=== PATIENT | male | born 2000 | race Caucasian/White ===

== ENCOUNTER 2023-01-30 12:31 | Outpatient (CLI) | payer OTHER | END 2023-01-30 23:59 | disposition critical access hospital (66) | LOC: EMS 12:31 | DX: T48.4X2A Poisoning by expectorants, intentional self-harm, initial encounter (principal); T45.0X2A Poisoning by antiallergic and antiemetic drugs, intentional self-harm, initial encounter; R11.10 Vomiting, unspecified; R00.0 Tachycardia, unspecified; F10.90 Alcohol use, unspecified, uncomplicated | CPT/HCPCS: A0425; A0427 ==

== ENCOUNTER 2023-01-30 12:48 | Emergency (ER) | payer OTHER ==
[2023-01-30 13:02] LABS: BASOPHILS # (AUTO) 0.1 10^3/uL (0.0-0.1); BASOPHILS % (AUTO) 0.7 %; EOSINOPHILS % (AUTO) 0.2 %; HCT - HEMATOCRIT 45.9 % (42.0-52.0); HGB - HEMOGLOBIN 15.5 g/dL (14.0-18.0); LYMPHOCYTES # (AUTO) 1.3 10^3/uL (1.5-3.5); LYMPHOCYTES % (AUTO) 12.5 %; MEAN CORPUSCULAR HEMOGLOBIN 29.6 pg (27.0-31.0); MEAN CORPUSCULAR HGB CONC 33.8 g/dL (32.0-36.0); MEAN CORPUSCULAR VOLUME 87.6 fL (80.0-94.0); MEAN PLATELET VOLUME 9.9 fL (7.4-11.4); MONOCYTES # (AUTO) 0.9 10^3/uL (0.0-1.0); MONOCYTES % (AUTO) 8.5 %; NEUTROPHILS # (AUTO) 7.9 10^3/uL (1.5-6.6); NEUTROPHILS % (AUTO) 77.8 %; PLT - PLATELET COUNT 306 10^3/uL (130-450); RED BLOOD COUNT 5.24 10^6/uL (4.70-6.10); RED CELL DISTRIBUTION WIDTH 12.6 % (12.0-15.0); WHITE BLOOD COUNT 10.1 x10^3/uL (4.8-10.8)
[2023-01-30 13:17] LABS: ALBUMIN/GLOBULIN RATIO 1.7 (1.0-2.2); ALKALINE PHOSPHATASE 54 IU/L (42-121); ALT ALANINE AMINOTRANSFERASE 10 IU/L (10-60); AST ASPARTATE AMINOTRANSFERASE 14 IU/L (10-42); BILIRUBIN,TOTAL 0.8 mg/dL (0.2-1.0); BUN - BLOOD UREA NITROGEN 11 mg/dL (6-20); CALCIUM 9.7 mg/dL (8.5-10.3); CARBON DIOXIDE - CO2 24 mmol/L (21-32); CHLORIDE 107 mmol/L (101-111); CK- CREATINE KINASE 127 IU/L (30-223); CREATININE 0.8 mg/dL (0.6-1.3); ETOH - ETHANOL 84.3 mg/dL; GFR - MDRD 119 (>89); GLUCOSE 102 mg/dL (74-104); LIPASE 25 U/L (11-82); POTASSIUM 3.4 mmol/L (3.5-4.5); SODIUM 140 mmol/L (135-145); TOTAL PROTEIN 7.9 g/dL (6.4-8.9)
[2023-01-30 13:19] LABS: ACETAMINOPHEN < 0.1 ug/mL; SALICYLATE < 1.5 mg/dL
[2023-01-30] MEDS ORDERED: LORazepam 2 MG/ML VIAL IVP STA (13:19)
[2023-01-30] MEDS ORDERED: SODIUM CHLORIDE 0.9% 1,000 ML IV STA ×2 (13:23)
--- NOTE | 2023-01-30 13:24 | ED Physician Documentation ---
History of Present Illness - Stated complaint Stated Complaint: SI - Chief complaint Chief Complaint: General - History obtained from History obtained from: Patient - History of Present Illness Timing: Today Pain level max: 0 Pain level now: 0 - Additonal information Additional information: Patient is a 22-year-old male who presents to the emergency department stating that he has been feeling suicidal recently. He states that he tried to overdose today on dextromethorphan and Claritin. He states he also drank vodka. He reportedly called 911 after taking the medications. He states that he feels hopeless. He denies ever being hospitalized for depression or suicidal ideation in the past. Denies any prior suicide attempts. Denies being on any regular medications at home. Nothing makes it better or worse. He did have emesis after ingesting the medications. Review of Systems Constitutional: denies: Fever, Chills GI: denies: Vomiting, Diarrhea : denies: Dysuria Skin: denies: Rash Musculoskeletal: denies: Neck pain, Back pain Neurologic: denies: Headache PD PAST MEDICAL HISTORY - Past Medical History Past Medical History: No - Allergies Allergies/Adverse Reactions: Allergies Allergy/AdvReac Type Severity Reaction Status Date / Time latex Allergy Rash Verified 01/30/23 13:23 - Social History Does the pt drink ETOH?: Yes ETOH Use: Liquor - Family History Family history: reports: Non contributory PD ED PE NORMAL - Vitals Vital signs reviewed: Yes - General General: Alert and oriented X 3, No acute distress, Well developed/nourished - HEENT HEENT: Moist mucous membranes - Neck Neck: Supple, no meningeal sign - Cardiac Cardiac: Strong equal pulses, Other (Tachycardic) - Respiratory Respiratory: No respiratory distress, Clear bilaterally - Abdomen Abdomen: Soft, Non tender, Non distended - Derm Derm: Warm and dry, No rash - Extremities Extremities: No edema, No calf tenderness / cord - Neuro Neuro: Alert and oriented X 3 Results - Vitals Vitals: Vital Signs - 24 hr 01/30/23 01/30/23 01/30/23 12:53 15:20 17:15 Temperature 36.8 C Heart Rate 155 H 129 H 110 H Respiratory 15 16 16 Rate Blood Pressure 148/76 H 104/69 116/52 L O2 Saturation 100 100 99 Oxygen O2 Source Room air - EKG (time done) 1303 EKG releavant findings:: EKG personally interpreted by author of this note. Relevant findings are: Rate: Rate (enter#) (139) Rhythm: Sinus tachycardia [place]: Normal Intervals: Normal [place] QRS: Normal Ischemia: Normal ST segments - Labs Labs: Laboratory Tests 01/30/23 01/30/23 01/30/23 12:57 12:57 12:57 WBC 10.1 RBC 5.24 Hgb 15.5 Hct 45.9 MCV 87.6 MCH 29.6 MCHC 33.8 RDW 12.6 Plt Count 306 MPV 9.9 Neut # (Auto) 7.9 H Lymph # (Auto) 1.3 L [place] # (Auto) 0.9 Eos # (Auto) 0.0 Baso # (Auto) 0.1 Absolute Nucleated RBC 0.00 Nucleated RBC % 0.0 Sodium 140 Potassium 3.4 L Chloride 107 Carbon Dioxide 24 Anion Gap 9.0 BUN 11 Creatinine 0.8 Estimated GFR (MDRD) 119 Glucose 102 Calcium 9.7 Magnesium 2.0 Total Bilirubin 0.8 AST 14 ALT 10 Alkaline Phosphatase 54 Total Creatine Kinase 127 Total Protein 7.9 Albumin 5.0 Globulin 2.9 Albumin/Globulin Ratio 1.7 Lipase 25 TSH 0.27 L Free T4 Direct 1.02 Urine Color Urine Clarity Urine pH Ur Specific [place] Urine Protein Urine Glucose (UA) Urine Ketones Urine Occult Blood Urine Nitrite Urine Bilirubin Urine Urobilinogen Ur Leukocyte Esterase Ur Microscopic Review Urine Culture Comments Salicylates < 1.5 Urine Opiates Screen Ur Oxycodone Screen Urine Methadone Screen Ur Propoxyphene Screen Acetaminophen < 0.1 Ur Barbiturates Screen Ur Tricyclics Screen Ur Phencyclidine Scrn Ur Amphetamine Screen U Methamphetamines Scrn U Benzodiazepines Scrn Urine Cocaine Screen U Cannabinoids Screen Ethyl Alcohol 84.3 01/30/23 01/30/23 14:20 18:25 WBC RBC Hgb Hct MCV MCH MCHC RDW Plt Count MPV Neut # (Auto) Lymph # (Auto) [place] # (Auto) Eos # (Auto) Baso # (Auto) Absolute Nucleated RBC Nucleated RBC % Sodium Potassium Chloride Carbon Dioxide Anion Gap BUN Creatinine Estimated GFR (MDRD) Glucose Calcium Magnesium Total Bilirubin AST ALT Alkaline Phosphatase Total Creatine Kinase Total Protein Albumin Globulin Albumin/Globulin Ratio Lipase TSH Free T4 Direct Urine Color YELLOW Urine Clarity CLEAR Urine pH 5.5 Ur Specific [place] 1.010 Urine Protein NEGATIVE Urine Glucose (UA) NEGATIVE Urine Ketones NEGATIVE Urine Occult Blood NEGATIVE Urine Nitrite NEGATIVE Urine Bilirubin NEGATIVE Urine Urobilinogen 0.2 (NORMAL) Ur Leukocyte Esterase NEGATIVE Ur Microscopic Review NOT INDICATED Urine Culture Comments NOT INDICATED Salicylates Urine Opiates Screen NEGATIVE Ur Oxycodone Screen NEGATIVE Urine Methadone Screen NEGATIVE Ur Propoxyphene Screen NEGATIVE Acetaminophen Ur Barbiturates Screen NEGATIVE Ur Tricyclics Screen NEGATIVE Ur Phencyclidine Scrn NEGATIVE Ur Amphetamine Screen NEGATIVE U Methamphetamines Scrn NEGATIVE U Benzodiazepines Scrn NEGATIVE Urine Cocaine Screen NEGATIVE U Cannabinoids Screen NEGATIVE Ethyl Alcohol < 10.0 PD Medical Decision Making - ED course Complexity details: reviewed results, re-evaluated patient, considered differential, d/w patient, d/w family, d/w retail consultant ED course: 22-year-old male status post an intentional overdose of dextromethorphan, Claritin and alcohol today. This was not an attempt to kill himself. He states there are no recent stressors. Does not have a counselor, therapist or psychiatrist. [place] His family was with him in the emergency department. Poison control was consulted and the patient was observed in the emergency department for over 6 hours, this equates to over 8 hours postingestion. Tachycardia resolved. Mental status improved. Alcohol level is negative. He is medically clear for psychiatric care. I did try to safety plan with the patient, but he lives alone and did not safety plan effectively with me. He does not want to go to inpatient treatment, does not feel it is necessary. Therefore I have contacted the Brigid CHERRY, she will consult with the patient and evaluate him. She will also speak with his family who is present in the emergency department as well. Patient was evaluated by the Brigid CHERRY, she spoke with the family, patient, his girlfriend. She was able to create a safety plan and does not feel that hospitalization would benefit him at this time. Does not see any indication for involuntary commitment. He will be with family and will follow-up when he returns home to [place]. He will stay away from alcohol. Patient counseled regarding signs and symptoms for which I believe and urgent re-evaluation would be necessary. Patient with good understanding of and agreement to plan and is comfortable going home at this time This document was made in part using voice recognition software. While efforts are made to proofread this document, sound alike and grammatical errors may occur. Departure - Departure Disposition: 01 Home, Self Care Clinical Impression: Intentional overdose Qualifiers: Encounter type: initial encounter Qualified Code(s): T50.902A - Poisoning by unspecified drugs, medicaments and biological substances, intentional self-harm, initial encounter Depression Qualifiers: Depression Type: unspecified Qualified Code(s): F32.A - Depression, unspecified Condition: Good Instructions: ED Depression, ED Overdose Intentional Follow-Up: Your,doctor in 1 week [Other] Comments: Please follow-up as instructed by Brigid, the DCR today, it is recommended that you follow-up closely with your primary care provider at home and consider taking medication for your depression. Please return if you worsen. This was a serious overdose today. If you feel like you are going to harm yourself or having worsening suicidal thoughts, please follow the safety plan that you created with Brigid today. Crisis Line and is available to talk to someone [email or web address] is also available to chat with someone online if you prefer. There are also many resources on this website and apps for your phone to help with your mental health You can also text the word START to [phone] to chat with someome via text. Forms: PCP List
[2023-01-30 13:31] LABS: THYROID STIMULATING HORMONE 0.27 uIU/mL (0.34-5.60)
[2023-01-30 14:36] LABS: MUDS CUTOFF CONCENTRATIONS CUTOFF CONC BELOW:
[2023-01-30 14:38] LABS: BILIRUBIN,URINE NEGATIVE (NEGATIVE); CLARITY,URINE CLEAR (CLEAR); GLUCOSE, URINE (UA) NEGATIVE (NEGATIVE); KETONES,URINE (UA) NEGATIVE (NEGATIVE); LEUKOCYTE ESTERASE, URINE NEGATIVE (NEGATIVE); NITRITE,URINE NEGATIVE (NEGATIVE); OCCULT BLOOD,URINE NEGATIVE (NEGATIVE); PH,URINE 5.5 PH (5.0-7.5); PROTEIN,URINE NEGATIVE (NEGATIVE); UROBILINOGEN,URINE 0.2 (NORMAL) E.U./dL (NORMAL)
[2023-01-30 14:48] LABS: AMPHETAMINE SCREEN,URINE NEGATIVE (NEGATIVE); BARBITURATE SCREEN,UR NEGATIVE (NEGATIVE); BENZODIAZEPINES SCREEN, URINE NEGATIVE (NEGATIVE); COCAINE SCREEN URINE NEGATIVE (NEGATIVE); METHADONE SCREEN, URINE NEGATIVE (NEGATIVE); METHAMPHETAMINES SCREEN, URINE NEGATIVE (NEGATIVE); OPIATE SCREEN, URINE NEGATIVE (NEGATIVE); OXYCODONE SCREEN, URINE NEGATIVE (NEGATIVE); PROPOXYPHENE SCREEN, URINE NEGATIVE (NEGATIVE); THC CANNABINOID SCREEN, URINE NEGATIVE (NEGATIVE); TRICYCLIC ANTIDEPRESSANT,URINE NEGATIVE (NEGATIVE)
[2023-01-30 22:27] VITALS: BP 92/52; O2SAT 98
== END 2023-01-30 22:15 | disposition home or self-care (01) ==
LOC: ED 12:48
DX: T48.3X2A Poisoning by antitussives, intentional self-harm, initial encounter (principal); T51.92XA Toxic effect of unspecified alcohol, intentional self-harm, initial encounter
CPT/HCPCS: 36415; 80053; 80306; 80307; 80320; 80329; 81003; 82550; 83690; 83735; 84439; 84443; 85025; 93005; 96374; 99284; J2060; 81001; 87086